=== PATIENT | female | born 1950 | race Caucasian/White ===

== ENCOUNTER 2024-05-24 23:23 | Inpatient (IN) | payer MEDICARE, OTHER ==
[~2024-05-24] VITALS: Ht 165.1 cm; Wt 74.8 kg
[2024-05-25 00:07] LABS: BASOPHILS # (AUTO) 0.1 K/UL (0.0-0.2); BASOPHILS % (AUTO) 0.9 % (0.0-2.0); EOSINOPHILS # (AUTO) 0.5 K/uL (0.0-0.7); EOSINOPHILS % (AUTO) 3.7 % (0.0-7.0); HEMATOCRIT 24.1 % (31.2-41.9); HEMOGLOBIN 7.7 g/dL (10.9-14.3); LYMPHOCYTES # (AUTO) 1.5 K/uL (0.8-4.8); LYMPHOCYTES % (AUTO) 10.5 % (20.5-51.5); MEAN CORPUSCULAR HEMOGLOBIN 24.3 uug (24.7-32.8); MEAN CORPUSCULAR HGB CONC 32 g/dL (32.3-35.6); MEAN CORPUSCULAR VOLUME 75.7 fL (75.5-95.3); MONOCYTES # (AUTO) 1.5 K/uL (0.1-1.30); MONOCYTES % (AUTO) 10.2 % (0.0-11.0); NEUTROPHILS # (AUTO) 10.8 K/uL (1.8-8.9); NEUTROPHILS % (AUTO) 74.7 % (38.5-71.5); PLATELET COUNT (AUTO) 362 K/uL (179-408); RED BLOOD CELL COUNT(AUTO) 3.18 MIL/uL (3.63-4.92); RED CELL DISTRIBUTION WIDTH 16.4 % (12.3-17.7); WHITE BLOOD COUNT (AUTO) 14.4 K/uL (3.8-11.8)
[2024-05-25] MEDS: HYDROMORPHONE 1 MG/1 ML DISP.SYRIN IV ONE (00:15)
[2024-05-25] MEDS ORDERED: LEVO50TA8 PO (00:20)
[2024-05-25] MEDS ORDERED: LEVO100T10 PO (00:20)
[2024-05-25] MEDS ORDERED: OLAN5TAB70 PO (00:20)
[2024-05-25] MEDS ORDERED: ESCI5TAB16 PO (00:20)
[2024-05-25] MEDS ORDERED: DOXY-326 PO (00:20)
[2024-05-25] MEDS ORDERED: gemtesa PO (00:20)
[2024-05-25] MEDS ORDERED: HYDR-3980 PO (00:20)
[2024-05-25] MEDS ORDERED: TRAZ-182 PO (00:20)
[2024-05-25] MEDS ORDERED: METH10TA4 PO (00:20)
[2024-05-25] MEDS ORDERED: QUET25TA PO (00:20)
[2024-05-25] MEDS ORDERED: PRED20TA PO (00:20)
[2024-05-25] MEDS ORDERED: APIX5TAB PO (00:20)
[2024-05-25] MEDS ORDERED: BUDE0.5A IH (00:20)
[2024-05-25] MEDS ORDERED: CEFD300C3 PO (00:20)
[2024-05-25 00:29] LABS: ALANINE AMINOTRANSFERASE 25 U/L (14-59); ALBUMIN 2.3 g/dL (3.4-5.0); ALKALINE PHOSPHATASE 77 U/L (50-136); ASPARTATE AMINOTRANSFERASE 15 U/L (15-37); BILIRUBIN,TOTAL 0.4 mg/dL (0.2-1.0); CALCIUM 8.1 mg/dL (8.5-10.1); CARBON DIOXIDE 30 mmol/L (21-32); CHLORIDE 103 mmol/L (98-107); CREATININE 0.8 mg/dL (0.6-1.3); GLUCOSE 99 mg/dL (74-106); POTASSIUM 3.9 mmol/L (3.5-5.1); SODIUM SERUM 138 mmol/L (136-145); TOTAL PROTEIN, SERUM 5.4 g/dL (6.4-8.2); UREA NITROGEN, BLOOD 13 mg/dL (7-18)
[2024-05-25] MEDS: PANTOPRAZOLE SODIUM IV 80 MG in IV DEXTROSE 5% 100 ML IV ONE (00:30)
[2024-05-25 00:39] LABS: *OCCULT BLOOD STOOL POSITIVE (NEGATIVE)
[2024-05-25] MEDS ORDERED: PANTOPRAZOLE SODIUM 40 MG VIAL ONE ×2 (00:56→00:58)
[2024-05-25] MEDS: METOCLOPRAMIDE HCL 10 MG/2 ML VIAL IV ONE (01:15)
[2024-05-25] MEDS ORDERED: HYDROMORPHONE 1 MG/1 ML DISP.SYRIN ONE (01:26)
[2024-05-25] MEDS ORDERED: METOCLOPRAMIDE HCL 10 MG/2 ML VIAL ONE (01:34)
[2024-05-25] MEDS ORDERED: PANTOPRAZOLE SODIUM IV 80 MG in IV DEXTROSE 5% 500 ML IV SCH ×2 (01:45→09:00)
[2024-05-25] MEDS: CEFTRIAXONE 1 G in IV DEXTROSE 5% 50 ML IV SCH (01:45)
[2024-05-25] MEDS ORDERED: HYDROMORPHONE 1 MG/1 ML DISP.SYRIN IV PRN ×2 (01:45→07:15)
[2024-05-25] MEDS ORDERED: METOCLOPRAMIDE HCL 10 MG/2 ML VIAL IV PRN (01:45)
[2024-05-25] MEDS ORDERED: REMEDY ESSENTIAL ZINC PASTE 113 GM TP PRN (01:45)
[2024-05-25] MEDS ORDERED: CEFTRIAXONE /D5W 50ML IVPB **ER PYXIS IV ONE (01:58)
[2024-05-25 07:50] LABS: BASOPHILS # (AUTO) 0.1 K/UL (0.0-0.2); BASOPHILS % (AUTO) 0.6 % (0.0-2.0); EOSINOPHILS # (AUTO) 0.7 K/uL (0.0-0.7); EOSINOPHILS % (AUTO) 4.6 % (0.0-7.0); HEMATOCRIT 23.8 % (31.2-41.9); HEMOGLOBIN 7.6 g/dL (10.9-14.3); LYMPHOCYTES % (AUTO) 13.2 % (20.5-51.5); MEAN CORPUSCULAR HGB CONC 32 g/dL (32.3-35.6); MEAN CORPUSCULAR VOLUME 74.7 fL (75.5-95.3); MONOCYTES # (AUTO) 1.5 K/uL (0.1-1.30); MONOCYTES % (AUTO) 10.1 % (0.0-11.0); NEUTROPHILS # (AUTO) 10.8 K/uL (1.8-8.9); NEUTROPHILS % (AUTO) 71.5 % (38.5-71.5); PLATELET COUNT (AUTO) 387 K/uL (179-408); RED BLOOD CELL COUNT(AUTO) 3.19 MIL/uL (3.63-4.92); RED CELL DISTRIBUTION WIDTH 16.6 % (12.3-17.7); WHITE BLOOD COUNT (AUTO) 15.1 K/uL (3.8-11.8)
[2024-05-25 07:52] LABS: DIFFERENTIAL COMMENT 1
[2024-05-25 08:05] LABS: ALANINE AMINOTRANSFERASE 16 U/L (14-59); ALBUMIN 2.4 g/dL (3.4-5.0); ALKALINE PHOSPHATASE 80 U/L (50-136); ASPARTATE AMINOTRANSFERASE 20 U/L (15-37); BILIRUBIN,DIRECT 0.1 mg/dL (0.0-0.2); BILIRUBIN,TOTAL 0.3 mg/dL (0.2-1.0); CALCIUM 8.3 mg/dL (8.5-10.1); CARBON DIOXIDE 30 mmol/L (21-32); CHLORIDE 103 mmol/L (98-107); CREATININE 0.9 mg/dL (0.6-1.3); GLUCOSE 91 mg/dL (74-106); PHOSPHOROUS 2.6 mg/dL (2.5-4.9); POTASSIUM 4.2 mmol/L (3.5-5.1); SODIUM SERUM 138 mmol/L (136-145); TOTAL PROTEIN, SERUM 5.6 g/dL (6.4-8.2); UREA NITROGEN, BLOOD 10 mg/dL (7-18)
[2024-05-25] MEDS: PANTOPRAZOLE SODIUM 40 MG VIAL IV SCH (09:23)
[2024-05-25] MEDS: NEOMY/BACITRAC/POLYMI OINT 28.35 GM TUBE TOP SCH (13:53)
[2024-05-25] MEDS: HYDROCODONE/APAP 10-325 MG TABLET PO PRN (13:54)
[2024-05-25] MEDS ORDERED: OLANZAPINE 5 MG TABLET PO PRN (16:00)
[2024-05-25] MEDS ORDERED: METHYLPHENIDATE HCL 10 MG PO SCH (17:00)
[2024-05-25] MEDS ORDERED: QUETIAPINE FUMARATE 25 MG TABLET PO SCH (17:00)
[2024-05-25] MEDS ORDERED: DOSING BY PHARMACY-MD TO SPECIFY MED/ROUTE XX PRN (18:00)
[2024-05-25] MEDS ORDERED: QUETIAPINE FUMARATE 25 MG TABLET PO PRN (18:00)
[2024-05-25] MEDS: CEFDINIR 300 MG CAPSULE PO SCH (20:00)
[2024-05-25] MEDS: TRAZODONE 50 MG TABLET PO SCH (20:44)
[2024-05-25] MEDS: QUETIAPINE FUMARATE 25 MG TABLET PO SCH (20:44)
[2024-05-25] MEDS ORDERED: INSULIN REGULAR, HUMAN 1000 UNIT/10 ML VIAL ONE ×2 (20:45→20:47)
[2024-05-25] MEDS ORDERED: DOXYCYCLINE HYCLATE 100 MG TABLET ONE (20:47)
[2024-05-25] MEDS: DOXYCYCLINE HYCLATE 100 MG TABLET PO SCH (20:51)
[2024-05-25 23:00] VITALS: BP 118/54; TEMP 97.4; O2SAT 92
[2024-05-26] VITALS (11 sets, daily range): BP systolic 91–134; BP diastolic 46–67; TEMP 97.5–99; O2SAT 94–100
[2024-05-26] MEDS: LEVOTHYROXINE SODIUM 100 MCG TABLET PO SCH (06:07)
[2024-05-26 06:59] LABS: BASOPHILS % (AUTO) 0.5 % (0.0-2.0); EOSINOPHILS # (AUTO) 0.5 K/uL (0.0-0.7); EOSINOPHILS % (AUTO) 5.9 % (0.0-7.0); HEMATOCRIT 25.1 % (31.2-41.9); HEMOGLOBIN 7.9 g/dL (10.9-14.3); LYMPHOCYTES # (AUTO) 1.4 K/uL (0.8-4.8); LYMPHOCYTES % (AUTO) 16.9 % (20.5-51.5); MEAN CORPUSCULAR HEMOGLOBIN 26.7 uug (24.7-32.8); MEAN CORPUSCULAR HGB CONC 31 g/dL (32.3-35.6); MONOCYTES # (AUTO) 0.9 K/uL (0.1-1.30); MONOCYTES % (AUTO) 10.9 % (0.0-11.0); NEUTROPHILS # (AUTO) 5.6 K/uL (1.8-8.9); NEUTROPHILS % (AUTO) 65.8 % (38.5-71.5); PLATELET COUNT (AUTO) 340 K/uL (179-408); RED BLOOD CELL COUNT(AUTO) 2.95 MIL/uL (3.63-4.92); RED CELL DISTRIBUTION WIDTH 17.1 % (12.3-17.7); WHITE BLOOD COUNT (AUTO) 8.5 K/uL (3.8-11.8)
[2024-05-26 07:14] LABS: CALCIUM 8.3 mg/dL (8.5-10.1); CARBON DIOXIDE 26 mmol/L (21-32); CHLORIDE 104 mmol/L (98-107); CREATININE 0.8 mg/dL (0.6-1.3); GLUCOSE 80 mg/dL (74-106); MAGNESIUM 2.2 mg/dL (1.8-2.4); PHOSPHOROUS 2.9 mg/dL (2.5-4.9); SODIUM SERUM 135 mmol/L (136-145); UREA NITROGEN, BLOOD 8 mg/dL (7-18)
[2024-05-26 07:20] LABS: DIFFERENTIAL COMMENT 1
[2024-05-26 07:53] LABS: POTASSIUM 3.8 mmol/L (3.5-5.1)
[2024-05-26] MEDS: BUDESONIDE 0.5 MG/2 ML NEBU IH SCH (09:00)
[2024-05-26] MEDS: ESCITALOPRAM OXALATE 10 MG TABLET PO SCH (10:25)
[2024-05-26] MEDS: IV NS 1000 ML 1,000 ML IV PRN (11:45)
[2024-05-26] MEDS: MORPHINE SULFATE 2 MG/1 ML DISP.SYRIN IV PRN (11:57)
[2024-05-26] MEDS: OLANZAPINE 2.5 MG TABLET PO SCH (12:02)
[2024-05-26] MEDS: predniSONE 20 MG TABLET PO SCH (12:02)
[2024-05-27] VITALS (15 sets, daily range): BP systolic 105–135; BP diastolic 52–72; TEMP 97.4–98.6; O2SAT 96–98
[2024-05-27 07:06] LABS: EOSINOPHILS # (AUTO) 0.1 K/uL (0.0-0.7)
[2024-05-27 07:09] LABS: BASOPHILS # (AUTO) 0.1 K/UL (0.0-0.2); BASOPHILS % (AUTO) 0.7 % (0.0-2.0); EOSINOPHILS % (AUTO) 0.8 % (0.0-7.0); HEMATOCRIT 22.5 % (31.2-41.9); LYMPHOCYTES # (AUTO) 1.3 K/uL (0.8-4.8); LYMPHOCYTES % (AUTO) 10.6 % (20.5-51.5); MEAN CORPUSCULAR HEMOGLOBIN 26.1 uug (24.7-32.8); MEAN CORPUSCULAR HGB CONC 32 g/dL (32.3-35.6); MEAN CORPUSCULAR VOLUME 81.4 fL (75.5-95.3); MONOCYTES # (AUTO) 0.9 K/uL (0.1-1.30); MONOCYTES % (AUTO) 7.9 % (0.0-11.0); NEUTROPHILS # (AUTO) 9.6 K/uL (1.8-8.9); PLATELET COUNT (AUTO) 363 K/uL (179-408); RED BLOOD CELL COUNT(AUTO) 2.77 MIL/uL (3.63-4.92); RED CELL DISTRIBUTION WIDTH 16.6 % (12.3-17.7); WHITE BLOOD COUNT (AUTO) 11.9 K/uL (3.8-11.8)
[2024-05-27 07:15] LABS: CALCIUM 8.2 mg/dL (8.5-10.1); CARBON DIOXIDE 28 mmol/L (21-32); CHLORIDE 106 mmol/L (98-107); CREATININE 0.8 mg/dL (0.6-1.3); GLUCOSE 107 mg/dL (74-106); MAGNESIUM 2.1 mg/dL (1.8-2.4); PHOSPHOROUS 2.4 mg/dL (2.5-4.9); POTASSIUM 3.9 mmol/L (3.5-5.1); SODIUM SERUM 141 mmol/L (136-145); UREA NITROGEN, BLOOD 8 mg/dL (7-18)
[2024-05-27 07:16] LABS: DIFFERENTIAL COMMENT 1; HEMOGLOBIN 7.2 g/dL (10.9-14.3)
[2024-05-27 14:25] LABS: *OCCULT BLOOD STOOL NEGATIVE (NEGATIVE)
[2024-05-27] MEDS: PANTOPRAZOLE SODIUM 40 MG TABLET.DR PO SCH (16:10)
[2024-05-27] MEDS: NEUTRA PHOS PACKET PO ONE (16:10)
[2024-05-27 16:21] LABS: HEMATOCRIT 21.9 % (31.2-41.9)
[2024-05-27 16:54] LABS: HEMOGLOBIN 6.7 g/dL (10.9-14.3)
[2024-05-27] MEDS: OLANZAPINE 2.5 MG TABLET PO SCH (21:43)
[2024-05-28] MEDS: LEVOTHYROXINE SODIUM 50 MCG TABLET PO SCH (06:37)
[2024-05-28 07:37] LABS: BASOPHILS # (AUTO) 0.1 K/UL (0.0-0.2); BASOPHILS % (AUTO) 0.6 % (0.0-2.0); EOSINOPHILS # (AUTO) 0.3 K/uL (0.0-0.7); EOSINOPHILS % (AUTO) 1.9 % (0.0-7.0); HEMATOCRIT 29.6 % (31.2-41.9); HEMOGLOBIN 9.9 g/dL (10.9-14.3); LYMPHOCYTES # (AUTO) 2.6 K/uL (0.8-4.8); LYMPHOCYTES % (AUTO) 15.9 % (20.5-51.5); MEAN CORPUSCULAR HEMOGLOBIN 26.9 uug (24.7-32.8); MEAN CORPUSCULAR HGB CONC 34 g/dL (32.3-35.6); MEAN CORPUSCULAR VOLUME 80.1 fL (75.5-95.3); MONOCYTES # (AUTO) 1.3 K/uL (0.1-1.30); NEUTROPHILS % (AUTO) 73.6 % (38.5-71.5); PLATELET COUNT (AUTO) 432 K/uL (179-408); RED BLOOD CELL COUNT(AUTO) 3.69 MIL/uL (3.63-4.92); RED CELL DISTRIBUTION WIDTH 17.3 % (12.3-17.7); WHITE BLOOD COUNT (AUTO) 16.3 K/uL (3.8-11.8)
[2024-05-28 07:53] LABS: CALCIUM 8.1 mg/dL (8.5-10.1); CARBON DIOXIDE 27 mmol/L (21-32); CHLORIDE 108 mmol/L (98-107); CREATININE 0.8 mg/dL (0.6-1.3); GLUCOSE 88 mg/dL (74-106); MAGNESIUM 1.9 mg/dL (1.8-2.4); PHOSPHOROUS 2.6 mg/dL (2.5-4.9); POTASSIUM 3.6 mmol/L (3.5-5.1); SODIUM SERUM 144 mmol/L (136-145); UREA NITROGEN, BLOOD 19 mg/dL (7-18)
[2024-05-28 08:09] LABS: DIFFERENTIAL COMMENT 1
[2024-05-28 19:40] VITALS: O2SAT 96
[2024-05-28 19:50] VITALS: O2SAT 98
[2024-05-28 20:00] VITALS: BP 122/67; TEMP 98.6; O2SAT 99
[2024-05-29] VITALS (11 sets, daily range): BP systolic 99–148; BP diastolic 52–80; TEMP 97.2–98.3; O2SAT 93–100
[2024-05-29] MEDS ORDERED: predniSONE 20 MG TABLET PO SCH (09:00)
[2024-05-29] MEDS: predniSONE 50 MG TABLET PO SCH (10:32)
[2024-05-30] VITALS (8 sets, daily range): BP systolic 110–151; BP diastolic 62–76; TEMP 97.6–98.3; O2SAT 94–100
[2024-05-30] MEDS: MELATONIN 3 MG TABLET PO SCH (00:01)
[2024-05-30] MEDS: predniSONE 20 MG TABLET PO SCH (08:47)
[2024-05-30] MEDS: HYDROCODONE/APAP 5-325MG TABLET PO PRN (08:47)
[2024-05-30 11:33] LABS: BASOPHILS % (AUTO) 0.4 % (0.0-2.0); EOSINOPHILS # (AUTO) 0.2 K/uL (0.0-0.7); EOSINOPHILS % (AUTO) 2.1 % (0.0-7.0); HEMATOCRIT 29.1 % (31.2-41.9); HEMOGLOBIN 9.4 g/dL (10.9-14.3); LYMPHOCYTES # (AUTO) 0.9 K/uL (0.8-4.8); LYMPHOCYTES % (AUTO) 8.7 % (20.5-51.5); MEAN CORPUSCULAR HEMOGLOBIN 25.3 uug (24.7-32.8); MEAN CORPUSCULAR HGB CONC 32 g/dL (32.3-35.6); MEAN CORPUSCULAR VOLUME 78.3 fL (75.5-95.3); MONOCYTES # (AUTO) 0.7 K/uL (0.1-1.30); MONOCYTES % (AUTO) 6.2 % (0.0-11.0); NEUTROPHILS # (AUTO) 8.9 K/uL (1.8-8.9); NEUTROPHILS % (AUTO) 82.6 % (38.5-71.5); PLATELET COUNT (AUTO) 352 K/uL (179-408); RED BLOOD CELL COUNT(AUTO) 3.71 MIL/uL (3.63-4.92); RED CELL DISTRIBUTION WIDTH 17.7 % (12.3-17.7); WHITE BLOOD COUNT (AUTO) 10.8 K/uL (3.8-11.8)
[2024-05-30 11:34] LABS: DIFFERENTIAL COMMENT 1
[2024-05-30 11:44] LABS: CALCIUM 8.1 mg/dL (8.5-10.1); CARBON DIOXIDE 28 mmol/L (21-32); CHLORIDE 108 mmol/L (98-107); CREATININE 0.8 mg/dL (0.6-1.3); GLUCOSE 105 mg/dL (74-106); MAGNESIUM 1.8 mg/dL (1.8-2.4); PHOSPHOROUS 2.2 mg/dL (2.5-4.9); POTASSIUM 3.1 mmol/L (3.5-5.1); SODIUM SERUM 144 mmol/L (136-145); UREA NITROGEN, BLOOD 18 mg/dL (7-18)
[2024-05-30] MEDS: POTASSIUM CHLORIDE 20 MEQ TAB.PRT.SR PO ONE (13:22)
[2024-05-30] MEDS: HYDROCODONE/APAP 10-325 MG TABLET PO PRN (13:42)
[2024-05-30] MEDS ORDERED: OLAN2.5T3 PO ×2 (16:28)
[2024-05-30] MEDS: NEUTRA PHOS PACKET PO ONE (18:01)
[2024-05-31] VITALS: BP 138/63; TEMP 98.3; O2SAT 96
[2024-05-31 04:00] VITALS: BP 138/69; TEMP 98.5; O2SAT 96
[2024-05-31 08:00] VITALS: BP 145/77; TEMP 97; O2SAT 92; O2SAT 96
[2024-05-31 08:10] VITALS: O2SAT 98
[2024-05-31] MEDS: PROTEIN SUPPLEMENT (PROSTAT) 30 ML LIQUID PO SCH (08:44)
== END 2024-05-31 12:45 | disposition home or self-care (01) | DRG 377 ==
LOC: ER 23:32 → TELE3 05-25 08:01
PROVIDERS: ADMIT Nurse Practitioner Family; ATTEND Nurse Practitioner Family
PROC: 30233N1 Transfusion of Nonautologous Red Blood Cells into Peripheral Vein, Percutaneous Approach (ICD-10-PCS; principal; 2024-05-27)
DX: K92.2 Gastrointestinal hemorrhage, unspecified (principal); J12.89 Other viral pneumonia; J12.9 Viral pneumonia, unspecified; J15.9 Unspecified bacterial pneumonia; D62 Acute posthemorrhagic anemia; E44.0 Moderate protein-calorie malnutrition; J44.0 Chronic obstructive pulmonary disease with (acute) lower respiratory infection; F33.3 Major depressive disorder, recurrent, severe with psychotic symptoms; L97.411 Non-pressure chronic ulcer of right heel and midfoot limited to breakdown of skin; B97.89 Other viral agents as the cause of diseases classified elsewhere; E88.09 Other disorders of plasma-protein metabolism, not elsewhere classified; E03.9 Hypothyroidism, unspecified; C50.912 Malignant neoplasm of unspecified site of left female breast; B19.20 Unspecified viral hepatitis C without hepatic coma; F41.9 Anxiety disorder, unspecified; G89.4 Chronic pain syndrome; I10 Essential (primary) hypertension; Z53.29 Procedure and treatment not carried out because of patient's decision for other reasons
CPT/HCPCS: 36415; 71045; 83690; 83735; 84100; 85018; 85025; 85610; 86850; 86900; 86901; 86920; 94640; A4606; A4663; A6209; A6213; G0378; J0696; J1171; J1815; J2270; J2470; J2765; J7040; J7060; J7512; P9016